=== PATIENT | male | born 1985 | race Caucasian/White ===

== ENCOUNTER 2022-02-03 20:02 | Inpatient (IN) | payer OTHER ==
[2022-02-03] MEDS ORDERED: HYDROmorphone 0.5 MG/0.5 ML Syringe IVPUSH ONE ×2 (20:35→21:49)
[2022-02-03] MEDS ORDERED: Sodium Chloride 0.9% 10 ML Syringe FLUSH PRN (20:35)
[2022-02-03] MEDS ORDERED: Ondansetron 4 MG/2 ML SDV IVPUSH ONE (20:35)
[2022-02-03] MEDS ORDERED: Sodium Chloride 0.9% 1,000 ML IV STA (20:38)
[2022-02-03] MEDS ORDERED: Sodium Chloride 0.9% 10 ML Syringe FLUSH ONE (20:45)
[2022-02-03] MEDS ORDERED: Iopamidol 612 MG/ML 100 ML Bottle IVPUSH ONE (20:45)
[2022-02-03] MEDS ORDERED: Sodium Chloride 0.9% 100 ML IV SCH (20:45)
[2022-02-03] MEDS ORDERED: Lactated Ringers 1,000 ML IV ONE (22:43)
[2022-02-03] MEDS ORDERED: LORazepam 2 MG/ML SDV IV SCH (23:00)
[2022-02-03] MEDS: HYDROmorphone 0.5 MG/0.5 ML Syringe IVPUSH PRN (23:03)
[2022-02-04] MEDS: Ondansetron 4 MG in Sodium Chloride 0.9% 50 ML IV SCH ×2 (01:01→04:02)
[2022-02-04] MEDS: Lactated Ringers 1,000 ML IV SCH ×2 (01:01→07:24)
[2022-02-04] MEDS: HYDROmorphone 0.5 MG/0.5 ML Syringe IVPUSH PRN ×3 (04:01→21:32)
[2022-02-04] MEDS: Ondansetron 4 MG/2 ML SDV IV SCH ×3 (09:15→21:31)
[2022-02-04] MEDS ORDERED: Propofol 200 MG/20 ML SDV ONE (12:19)
[2022-02-04] MEDS ORDERED: Midazolam 1 MG/ML 2 ML SDV ONE (12:19)
[2022-02-04] MEDS ORDERED: fentaNYL 250 MCG/5 ML SDV ONE (12:19)
[2022-02-04] MEDS ORDERED: Lidocaine 1% 4 ML ONE (12:20)
[2022-02-04] MEDS ORDERED: Rocuronium 50 MG/5 ML Vial ONE (12:22)
[2022-02-04] MEDS ORDERED: Bupivacaine 0.5%/EPINEPHrine 1:200,000 50 ML MDV ONE (13:32)
[2022-02-04] MEDS ORDERED: Ketorolac 30 MG/ML SDV ONE (14:21)
[2022-02-04] MEDS ORDERED: ceFAZolin 1 GM Vial ONE (14:21)
[2022-02-04] MEDS ORDERED: Dexamethasone 4 MG/ML 5 ML MDV ONE (14:21)
[2022-02-04] MEDS ORDERED: Ondansetron 4 MG/2 ML SDV ONE (14:21)
[2022-02-04] MEDS ORDERED: diphenhydrAMINE 50 MG/ML SDV ONE (14:23)
[2022-02-04] MEDS ORDERED: Lactated Ringers 1,000 ML ONE ×2 (14:31)
[2022-02-04] MEDS ORDERED: HYDROmorphone 0.5 MG/0.5 ML Syringe IVPUSH PRN (15:13)
[2022-02-04] MEDS ORDERED: Ondansetron 4 MG/2 ML SDV IVPUSH PRN (15:13)
[2022-02-04] MEDS ORDERED: fentaNYL 100 MCG/2 ML SDV IVPUSH PRN (15:13)
[2022-02-04] MEDS: D5 1/2 NS w/ 20 mEq/L KCl 1,000 ML IV SCH (16:36)
[2022-02-05] MEDS: HYDROmorphone 0.5 MG/0.5 ML Syringe IVPUSH PRN (02:44)
[2022-02-05] MEDS ORDERED: Benzocaine/Cetylpyridinium/Menthol Lozenge MUCMEM PRN (02:59)
[2022-02-05] MEDS: Ondansetron 4 MG/2 ML SDV IV SCH (03:30)
[2022-02-05] MEDS: D5 1/2 NS w/ 20 mEq/L KCl 1,000 ML IV SCH (06:51)
== END 2022-02-05 15:06 | disposition home or self-care (01) | DRG 345 ==
LOC: JD.ED 20:02 → JD.MS 22:38
PROVIDERS: ADMIT Surgery; ATTEND Surgery
PROC: 0D9670Z Drainage of Stomach with Drainage Device, Via Natural or Artificial Opening (ICD-10-PCS; 2022-02-03)
PROC: 3E0G76Z Introduction of Nutritional Substance into Upper GI, Via Natural or Artificial Opening (ICD-10-PCS; 2022-02-03)
PROC: 0DJD4ZZ Inspection of Lower Intestinal Tract, Percutaneous Endoscopic Approach (ICD-10-PCS; principal; 2022-02-04)
DX: K56.609 Unspecified intestinal obstruction, unspecified as to partial versus complete obstruction (principal); R18.8 Other ascites; Z20.822 Contact with and (suspected) exposure to COVID-19; Z88.0 Allergy status to penicillin; Z89.111 Acquired absence of right hand; Z98.890 Other specified postprocedural states
CPT/HCPCS: 36415; 71045; 71045-26; 74177; 74177-26; 80048; 80053; 81001; 85025; 86140; A9270-GY; J0690; J1100; J1170; J1200; J1885; J2250; J2405; J2704; J2710; J3010; J3480; J3490; J7030; J7120; Q9967; U0002

== ENCOUNTER 2022-05-17 10:22 | Emergency (ER) | payer SELFPAY ==
[2022-05-17] MEDS ORDERED: Ketorolac 30 MG/ML SDV IM ONE (12:31)
[2022-05-17] MEDS ORDERED: diphenhydrAMINE 50 MG/ML SDV IM ONE (12:31)
[2022-05-17] MEDS ORDERED: Metoclopramide 10 MG/2 ML SDV IM ONE (12:31)
== END 2022-05-17 14:50 | disposition home or self-care (01) ==
LOC: JD.ED 10:22
DX: G44.89 Other headache syndrome (principal); Z88.6 Allergy status to analgesic agent; Z88.0 Allergy status to penicillin
CPT/HCPCS: 96372; 99283; J1200; J1885; J2765

== ENCOUNTER 2023-02-15 15:57 | Day surgery (SDC) | payer BC ==
[2023-02-15] MEDS ORDERED: Bupivacaine 0.5%/EPINEPHrine 1:200,000 50 ML MDV ONE (16:38)
[2023-02-15] MEDS ORDERED: Lidocaine 1% with EPINEPHrine 1:100,000 20 ML MDV ONE (16:39)
[2023-02-15] MEDS ORDERED: Levofloxacin/Dextrose 5%-Water 750 MG in Premix Bag 1 BAG IV ONE (16:44)
[2023-02-15] MEDS ORDERED: Clindamycin Phosphate in D5W 900 MG in Premix Bag 1 BAG IV ONE ×2 (16:44)
[2023-02-15] MEDS ORDERED: HYDROmorphone 0.5 MG/0.5 ML Syringe ONE (16:52)
[2023-02-15] MEDS ORDERED: Propofol 200 MG/20 ML SDV ONE (16:52)
[2023-02-15] MEDS ORDERED: Midazolam 1 MG/ML 2 ML SDV ONE (16:53)
[2023-02-15] MEDS ORDERED: fentaNYL 250 MCG/5 ML SDV ONE (16:53)
[2023-02-15] MEDS ORDERED: Lidocaine 1% 8 ML ONE (16:54)
[2023-02-15] MEDS ORDERED: Rocuronium 50 MG/5 ML Vial ONE (16:55)
[2023-02-15] MEDS ORDERED: Succinylcholine 200 MG/10 ML MDV ONE (16:55)
[2023-02-15] MEDS ORDERED: Neostigmine Methylsulfate 10 MG/10 ML MDV ONE (16:55)
[2023-02-15] MEDS ORDERED: Dexmedetomidine 200 MCG/2 ML SDV ONE (17:01)
[2023-02-15] MEDS ORDERED: Lactated Ringers 1,000 ML ONE (17:39)
[2023-02-15] MEDS ORDERED: fentaNYL 100 MCG/2 ML SDV IVPUSH PRN (17:56)
[2023-02-15] MEDS ORDERED: HYDROmorphone 0.5 MG/0.5 ML Syringe IVPUSH PRN (17:56)
[2023-02-15] MEDS ORDERED: Ondansetron 4 MG/2 ML SDV ONE (17:57)
[2023-02-15] MEDS ORDERED: Ketorolac 30 MG/ML SDV ONE (18:31)
[2023-02-15] MEDS ORDERED: Acetaminophen/HYDROcodone 325-5 MG Tab PO PRN ×2 (18:44→21:03)
[2023-02-16] MEDS ORDERED: Ibuprofen 600 MG Tab PO PRN (00:30)
== END 2023-02-16 00:32 | disposition home or self-care (01) ==
LOC: JD.ED 15:57 → JD.SDS 16:27 → JD.MS 21:30 → JD.SDS 02-16 00:32
PROVIDERS: ATTEND Surgery
DX: K35.80 Unspecified acute appendicitis (principal); Z88.0 Allergy status to penicillin; Z88.5 Allergy status to narcotic agent
CPT/HCPCS: 44970; 74177; A9270; J0330; J1170; J1885; J1956; J2250; J2405; J2704; J2710; J3010; J3490; J7120; Q9967; 00840

== ENCOUNTER 2023-03-31 19:18 | Emergency (ER) | payer BC ==
[2023-03-31] MEDS ORDERED: Fluorescein 1 MG Ophth Strip ONE (19:40)
[2023-03-31] MEDS ORDERED: Proparacaine 0.5% Ophth Soln 15 ML Bottle ONE (19:41)
[2023-03-31] MEDS ORDERED: Fluorescein 1 MG Ophth Strip EYERT ONE (19:41)
[2023-03-31] MEDS ORDERED: Proparacaine 0.5% Ophth Soln 15 ML Bottle EYERT ONE (19:43)
== END 2023-03-31 20:00 | disposition home or self-care (01) ==
LOC: JD.ED 19:18
DX: S05.01XA Injury of conjunctiva and corneal abrasion without foreign body, right eye, initial encounter (principal); Z88.5 Allergy status to narcotic agent; Z88.0 Allergy status to penicillin
CPT/HCPCS: 99283; J3490

== ENCOUNTER 2023-07-26 18:04 | Inpatient (IN) | payer BC, OTHER ==
[2023-07-26] MEDS ORDERED: HYDROmorphone 0.5 MG/0.5 ML Syringe IVPUSH ONE ×2 (18:37→21:23)
[2023-07-26 18:54] LABS: BASOPHILS PERCENT AUTO 0.4 % (0.0-1.0); EOSINOPHILS ABSOLUTE AUTO 0.2 K/mm3 (0.0-0.4); EOSINOPHILS PERCENT AUTO 2.8 % (0.0-6.0); HEMATOCRIT 42.4 % (42.0-52.0); HEMOGLOBIN 14.4 gm/dl (14.0-18.0); IMMATURE GRAN ABSOLUTE AUTO 0.02 K/mm3 (0.00-0.05); IMMATURE GRAN PERCENT AUTO 0.2 % (0.0-0.4); LYMPHOCYTES ABSOLUTE AUTO 2.2 K/mm3 (1.0-4.8); LYMPHOCYTES PERCENT AUTO 26.9 % (24.0-44.0); MEAN CORPUSCULAR HEMOGLOBIN 29.5 pg (28.0-32.0); MEAN CORPUSCULAR VOLUME 86.9 fl (83.0-99.0); MEAN PLATELET VOLUME 8.5 fl (9.4-12.4); MONOCYTES ABSOLUTE AUTO 0.6 K/mm3 (0.0-0.8); MONOCYTES PERCENT AUTO 6.9 % (0.0-8.0); NEUTROPHILS ABSOLUTE AUTO 5.2 K/mm3 (1.8-7.7); NEUTROPHILS PERCENT AUTO 62.8 % (41.0-71.0); PLATELET COUNT,PLT 216 K/mm3 (150-400); RED BLOOD CELL COUNT 4.88 M/mm3 (4.52-5.90); WHITE BLOOD CELL COUNT,WBC 8.28 K/mm3 (3.9-11.3)
[2023-07-26 19:04] LABS: A/G RATIO 1.1 (1-2); ALANINE AMINOTRANSFERASE,ALT 42 U/L (16-63); ALBUMIN 3.9 g/dl (3.4-5.0); ALKALINE PHOSPHATASE 93 U/L (46-116); ASPARTATE AMNIOTRANSFERASE,AST 23 U/L (15-37); BILIRUBIN TOTAL 0.2 mg/dL (0.2-1.0); BLOOD UREA NITROGEN,BUN 25 mg/dL (7-18); C-REACTIVE PROTEIN <0.2 mg/dL (<1.0); CALCIUM 9.6 mg/dL (8.5-10.1); CARBON DIOXIDE,CO2 29 mEq/L (21-32); CHLORIDE,CL 104 mEq/L (98-107); EST CRCL DRUG DOSING (CG) 109.81 mL/min; ESTIMATED GFR 101 mL/min (>60); GLUCOSE RANDOM 96 mg/dL (70-99); PROTEIN TOTAL,TP 7.5 g/dl (6.4-8.2); SODIUM,NA 140 mEq/L (136-145)
[2023-07-26] MEDS ORDERED: Sodium Chloride 0.9% 1,000 ML IV SCH (20:30)
[2023-07-26] MEDS ORDERED: Iopamidol 612 MG/ML 100 ML Bottle IVPUSH ONE (20:34)
[2023-07-26] MEDS ORDERED: Sodium Chloride 0.9% 10 ML Syringe FLUSH PRN (20:34)
[2023-07-26 20:50] LABS: APPEARANCE,URINE CLOUDY (Clear); BILIRUBIN,URINE NEGATIVE (Negative); COLOR,URINE YELLOW (Yellow); GLUCOSE,URINE NEGATIVE (Negative); KETONES,URINE NEGATIVE (Negative); LEUKOCYTE ESTERASE,URINE NEGATIVE (Negative); NITRITE,URINE NEGATIVE (Negative); OCCULT BLOOD,URINE NEGATIVE (Negative); PROTEIN,URINE TRACE (Negative); UROBILINOGEN,URINE 0.2 (0.2-1.0)
[2023-07-26 20:58] LABS: AMORPHOUS SEDIMENT,URINE MANY /hpf (NOT SEEN); BACTERIA,URINE FEW /hpf (FEW); MUCUS,URINE FEW /hpf (FEW); RBC,URINE 0-5 /hpf (0-5); SQUAMOUS EPITHELIAL CELLS,UR 0-5 /hpf (0-5); WBC,URINE 0-5 /hpf (0-5)
[2023-07-26] MEDS ORDERED: HYDROmorphone 0.5 MG/0.5 ML Syringe IVPUSH PRN (22:53)
[2023-07-26] MEDS ORDERED: Ondansetron 4 MG/2 ML SDV IVPUSH PRN (22:53)
[2023-07-26] MEDS: Dextrose 5%-0.9% NaCl 1,000 ML IV SCH (23:21)
[2023-07-27 06:15] LABS: BASOPHILS PERCENT AUTO 0.3 % (0.0-1.0); EOSINOPHILS ABSOLUTE AUTO 0.2 K/mm3 (0.0-0.4); EOSINOPHILS PERCENT AUTO 2.8 % (0.0-6.0); HEMATOCRIT 40.6 % (42.0-52.0); HEMOGLOBIN 13.8 gm/dl (14.0-18.0); IMMATURE GRAN ABSOLUTE AUTO 0.02 K/mm3 (0.00-0.05); IMMATURE GRAN PERCENT AUTO 0.3 % (0.0-0.4); LYMPHOCYTES ABSOLUTE AUTO 2.2 K/mm3 (1.0-4.8); LYMPHOCYTES PERCENT AUTO 31.9 % (24.0-44.0); MEAN CORPUSCULAR HEMOGLOBIN 29.9 pg (28.0-32.0); MEAN CORPUSCULAR VOLUME 87.9 fl (83.0-99.0); MEAN PLATELET VOLUME 8.9 fl (9.4-12.4); MONOCYTES ABSOLUTE AUTO 0.6 K/mm3 (0.0-0.8); MONOCYTES PERCENT AUTO 9.4 % (0.0-8.0); NEUTROPHILS ABSOLUTE AUTO 3.8 K/mm3 (1.8-7.7); NEUTROPHILS PERCENT AUTO 55.3 % (41.0-71.0); PLATELET COUNT,PLT 194 K/mm3 (150-400); RED BLOOD CELL COUNT 4.62 M/mm3 (4.52-5.90); WHITE BLOOD CELL COUNT,WBC 6.83 K/mm3 (3.9-11.3)
[2023-07-27] MEDS ORDERED: HYDROmorphone 0.5 MG/0.5 ML Syringe IVPUSH PRN (07:38)
[2023-07-27 08:12] LABS: ANION GAP 11.9 (5-15); BUN/CREATININE RATIO 28.8 (14-18); CALCIUM 8.3 mg/dL (8.5-10.1); CREATININE 0.8 mg/dL (0.7-1.3); EST CRCL DRUG DOSING (CG) 137.27 mL/min; POTASSIUM,K 3.9 mEq/L (3.5-5.1)
[2023-07-27] MEDS: Dextrose 5%-0.9% NaCl 1,000 ML IV SCH (08:44)
[2023-07-27] MEDS ORDERED: Nicotine 21 MG/24 Hr Patch TRDERM SCH (10:30)
[2023-07-27] MEDS ORDERED: Nicotine 14 MG/24 Hr Patch TRDERM SCH (10:45)
[2023-07-27] MEDS ORDERED: Diatrizoate Meglumine/Diatrizoate Sodium 37% 120 ML Bottle PO ONE (10:49)
== END 2023-07-27 19:43 | disposition home or self-care (01) | DRG 390 ==
LOC: JD.ED 18:04 → JD.MS 21:56
PROVIDERS: ADMIT Hospitalist; ATTEND Hospitalist
DX: K56.50 Intestinal adhesions [bands], unspecified as to partial versus complete obstruction (principal); F17.210 Nicotine dependence, cigarettes, uncomplicated; Z90.49 Acquired absence of other specified parts of digestive tract; Z88.5 Allergy status to narcotic agent; Z88.0 Allergy status to penicillin; Z98.890 Other specified postprocedural states; Z89.021 Acquired absence of right finger(s); Z79.899 Other long term (current) drug therapy
CPT/HCPCS: 36415; 74019; 74019-26; 74177; 74177-26; 74250; 74250-26; 80048; 80053; 81001; 82947; 85025; 86140; 99285; J1170; J3490; J7030; J7042; Q9967

== ENCOUNTER 2025-01-05 18:35 | Emergency (ER) | payer SELFPAY ==
[2025-01-05 19:08] LABS: BASOPHILS PERCENT AUTO 0.4 % (0.0-1.0); EOSINOPHILS ABSOLUTE AUTO 0.1 K/mm3 (0.0-0.4); EOSINOPHILS PERCENT AUTO 1.7 % (0.0-6.0); HEMATOCRIT 42.4 % (42.0-52.0); HEMOGLOBIN 14.8 gm/dl (14.0-18.0); IMMATURE GRAN ABSOLUTE AUTO 0.01 K/mm3 (0.00-0.05); IMMATURE GRAN PERCENT AUTO 0.1 % (0.0-0.4); LYMPHOCYTES ABSOLUTE AUTO 2.5 K/mm3 (1.0-4.8); LYMPHOCYTES PERCENT AUTO 32.4 % (24.0-44.0); MEAN CORPUSCULAR HEMOGLOBIN 29.8 pg (28.0-32.0); MEAN CORPUSCULAR HGB CONC 34.9 g/dl (32.0-36.0); MEAN CORPUSCULAR VOLUME 85.5 fl (83.0-99.0); MEAN PLATELET VOLUME 8.7 fl (9.4-12.4); MONOCYTES ABSOLUTE AUTO 0.5 K/mm3 (0.0-0.8); MONOCYTES PERCENT AUTO 6.6 % (0.0-8.0); NEUTROPHILS ABSOLUTE AUTO 4.5 K/mm3 (1.8-7.7); NEUTROPHILS PERCENT AUTO 58.8 % (41.0-71.0); PLATELET COUNT,PLT 234 K/mm3 (150-400); RED BLOOD CELL COUNT 4.96 M/mm3 (4.52-5.90); WHITE BLOOD CELL COUNT,WBC 7.59 K/mm3 (3.9-11.3)
[2025-01-05 19:26] LABS: PROTHROMBIN TIME 10.6 SECONDS (9.7-12.0)
[2025-01-05 19:27] LABS: PTT,PARTIAL THROMBOPLSTIN TIME 26.4 SECONDS (21.7-31.4)
[2025-01-05 19:38] LABS: A/G RATIO 1.2 (1-2); ALBUMIN 3.8 g/dl (3.4-5.0); ANION GAP 14.3 (5-15); BILIRUBIN TOTAL 0.2 mg/dL (0.2-1.0); EST CRCL DRUG DOSING (CG) 107.72 mL/min; MAGNESIUM 1.6 mg/dL (1.8-2.4); POTASSIUM,K 3.3 mEq/L (3.5-5.1); PROTEIN TOTAL,TP 7.1 g/dl (6.4-8.2)
== END 2025-01-05 20:35 | disposition home or self-care (01) ==
LOC: JD.ED 18:35
DX: F41.9 Anxiety disorder, unspecified (principal); F17.210 Nicotine dependence, cigarettes, uncomplicated; Z88.0 Allergy status to penicillin; Z88.5 Allergy status to narcotic agent; Z79.899 Other long term (current) drug therapy
CPT/HCPCS: 36415; 71045; 71045-26; 80053; 83735; 83880; 84484; 85025; 85610; 85730; 93005; 99283; 99285